=== PATIENT | male | born 1975 | race Caucasian/White ===

== ENCOUNTER 2017-11-22 10:43 | Emergency (ER) | payer OTHER ==
[~2017-11-22 10:43] MED LIST: NORCO 325 MG-51 TAB PO
[2017-11-22 12:32] LABS: ABSOLUTE BASOPHIL COUNT 0 /CUMM (0.0-0.2); ABSOLUTE EOSINOPHIL COUNT 0 /CUMM (0.0-0.7); ABSOLUTE GRANULOCYTE CT 7.3 /CUMM (1.4-6.5); ABSOLUTE LYMPH COUNT 0.9 /CUMM (1.2-3.4); BASOPHIL % 0.2 % (0.0-2.0); EOSINOPHIL % 0.3 % (0-5); GRANULOCYTE % 78.6 % (42.2-75.2); MEAN CORPUSCULAR HGB 32.5 PG (27.0-31.0); MEAN CORPUSCULAR HGB CONC 34.3 G/DL (33.0-37.0); MEAN PLATELET VOLUME 6.4 FL (7.4-10.4); PLATELET COUNT 203 /CUMM (130-400); RBC DISTRIBUTION WIDTH 12.8 % (11.5-14.5); RED BLOOD CELL CT 4.64 /CUMM (4.70-6.10); WHITE BLOOD CELL COUNT 9.2 /CUMM (4.8-10.8)
[2017-11-22 16:27] VITALS: BP 124/72
--- NOTE | 2017-11-22 17:03 | CT SCAN REPORT ---
EXAMINATION: CT ABDOMEN AND PELVIS WITH CONTRAST CLINICAL INFORMATION: Diarrhea. Left flank pain. Left lower quadrant pain for one day. COMPARISON: None TECHNIQUE: Multidetector volumetric imaging was performed of the abdomen and pelvis following IV administration of 95 mL of Optiray 320 intravenous contrast. Sagittal and coronal reformatted images were obtained on the technologist's workstation. DLP: 341.85 mGy-cm FINDINGS: LUNG BASES: The visualized lung bases are unremarkable. LIVER, GALLBLADDER, AND BILIARY TREE: The liver is normal in size, shape, and attenuation. No focal hepatic lesion or biliary ductal dilatation is present. The gallbladder is unremarkable with no evidence of radiopaque gallstones, gallbladder wall thickening, or obvious pericholecystic inflammatory changes. PANCREAS: Unremarkable. SPLEEN: Unremarkable. ADRENAL GLANDS: Unremarkable. KIDNEYS AND URETERS: The kidneys are normal in size, shape, and attenuation. No hydronephrosis, hydroureter, or calculi seen. No perinephric stranding. BLADDER: Unremarkable. GASTROINTESTINAL TRACT: There are diverticula of the left colon. There is an inflamed diverticulum at the proximal descending colon consistent with a focal diverticulitis. There is no perforation. There is no abscess. There is no obstruction of the bowel. There is scattered stool in the colon. The appendix is normal. The small bowel loops are unremarkable. ABDOMINAL WALL: No significant hernia is appreciated. LYMPH NODES: Normal. VASCULAR: Unremarkable. PELVIC VISCERA: Unremarkable. OSSEOUS STRUCTURES: Unremarkable. IMPRESSION: There is a moderate focal diverticulitis of the proximal descending colon.
[2017-11-22] MEDS ORDERED: CIPRO500 M1 PO (17:33)
[2017-11-22] MEDS ORDERED: PERCOCET 5-3251 EACH PO (17:33)
[2017-11-22] MEDS ORDERED: FLAGYL500 MG PO (17:33)
--- NOTE | 2017-11-22 17:34 | ED GI/GU/ABDOMINAL COMPLAINT ---
See Addendum History of Present Illness General Chief Complaint: Abdominal Pain/Flank Pain Stated Complaint: LEFT SIDE ABD PAIN Source: patient Exam Limitations: no limitations Vital Signs & Intake/Output Vital Signs & Intake/Output Vital Signs Date Time Temp Pulse Resp B/P B/P Pulse O2 O2 Flow FiO2 Mean Ox Delivery Rate 11/22 1627 98.7 77 18 124/72 98 11/22 1407 98.3 86 18 137/87 97 Room Air 11/22 1053 99 16 129/93 99 Room Air ED Intake and Output 11/23 0000 11/22 1200 Intake Total 0 Output Total Balance 0 Intake, Oral 0 Allergies Coded Allergies: Penicillins (Mild, HIVES 11/22/17) Reconcile Medications Ciprofloxacin HCl (Cipro) 500 MG TABLET 1 TAB PO BID diverituclitis Metronidazole (Flagyl) 500 MG TABLET 1 TAB PO TID diverticulitis Oxycodone HCl/Acetaminophen (Percocet 5-325 MG Tablet) 5 MG-325 MG TABLET 1 TAB PO 4 TIMES/DAY PRN pain Triage Note: PT TO ED C/O LT SIDED ABD PAIN RADIATING AROUND TO HIS BACK. DENIES ANY URINARY S/S. REPORTS THAT HE HAS BEEN ALSO HAVING DIARRHEA X1 MONTH, CALLED HIS PCP AND TOLD TO COME TO THE ED INSTEAD. PAIN WORSE WITH DEEP BREATHING. FEELS NAUSEOUS AT TIMES. Triage Nurses Notes Reviewed? yes Onset: Abrupt Duration: day(s): (1-2), constant, continues in ED, getting worse Timing: single episode today Quality/Severity: cramping, sharpness Severity Numbers: 7 Location: left flank, left lower quadrant Radiation: back Activities at Onset: none Prior Abdominal Problems: none HPI: 42-year-old male with no medical history presents for evaluation of left-sided abdominal pain. Patient reports this pain started yesterday and has been persistent. The pain is located in the left lower quadrant left flank radiates to the back described as sharp and cramping. Patient reports prior to this she has had watery diarrhea for about the past month. He is not been evaluated for this diarrhea. Denies any melena or bright red blood per rectum. Denies any fevers. No sick contacts or recent travel no recent antibiotics. No fevers nausea or vomiting. Is not taking any medicine for his pain. No recent abdominal surgery several had this pain before Past History Travel History Traveled to [place] past 21 day No Medical History Any Pertinent Medical History? see below for history Musculoskeletal: LT SHOULDER DISLOCATION Surgical History Surgical History: non-contributory Psychosocial History What is your primary language Latvian Tobacco Use: Never used Family History Hx Contributory? No Review of Systems Review of Systems Constitutional: Reports: no symptoms. EENTM: Reports: no symptoms. Respiratory: Reports: no symptoms. Cardiovascular: Reports: no symptoms. GI: Reports: see HPI, abdominal pain, diarrhea. Genitourinary: Reports: no symptoms. Musculoskeletal: Reports: no symptoms. Skin: Reports: no symptoms. Neurological/Psychological: Reports: no symptoms. Hematologic/Endocrine: Reports: no symptoms. Immunologic/Allergic: Reports: no symptoms. All Other Systems: Reviewed and Negative Physical Exam Physical Exam General Appearance: well developed/nourished, no apparent distress, alert, awake Head: atraumatic, normal appearance Eyes: Bilateral: normal appearance, EOMI. Ears, Nose, Throat, Mouth: moist mucous membrane Neck: normal inspection, supple, full range of motion Respiratory: normal breath sounds, chest non-tender, no respiratory distress, lungs clear Cardiovascular: regular rate/rhythm, normal peripheral pulses Peripheral Pulses: 2+ radial (R), 2+ radial (L) Gastrointestinal: normal bowel sounds, soft, no organomegaly, tenderness (llq, left flank) Back: normal inspection, normal range of motion, no vertebral tenderness, no cvat Extremities: normal range of motion Neurologic/Psych: no motor/sensory deficits, awake, alert, oriented x 3, normal gait Skin: intact, normal color, warm/dry Core Measures ACS in differential dx? No Sepsis Present: No Sepsis Focused Exam Completed? No Progress Differential Diagnosis: diverticulitis, gastritis, ischemic bowel, inflamm bowel dis, pancreatitis, peptic ulcer, PUD/GERD, perforated viscous, SBO, ureterolithiasis, urinary retention, urethritis, UTI/pyelo Plan of Care: Orders Procedure Date/time Status Add-on Test (ER Only) 11/22 1506 Active DIRECT BILIRUBIN 11/22 1220 Complete LIPASE 11/22 1105 Complete COMPREHENSIVE METABOLIC PANEL 11/22 1105 Complete CBC WITHOUT DIFFERENTIAL 11/22 1105 Complete Laboratory Tests 11/22/17 1220: Anion Gap 12, Estimated GFR > 60, BUN/Creatinine Ratio 17.5, Glucose 139 H, Calcium 10.2, Total Bilirubin 2.9 H, Direct Bilirubin 0.6 H, AST 44, ALT 57, Alkaline Phosphatase 74, Total Protein 8.4 H, Albumin 4.7, Globulin 3.7, Albumin/Globulin Ratio 1.3, Lipase 64, CBC w Diff NO MAN DIFF REQ, RBC 4.64 L, MCV 95.0 H, MCH 32.5 H, MCHC 34.3, RDW 12.8, MPV 6.4 L, Gran % 78.6 H, Lymphocytes % 10.2 L, Monocytes % 10.7 H, Eosinophils % 0.3, Basophils % 0.2, Absolute Granulocytes 7.3 H, Absolute Lymphocytes 0.9 L, Absolute Monocytes 1.0 H, Absolute Eosinophils 0, Absolute Basophils 0 11/22/17 1105: Urine Color Cancelled, Urine Clarity Cancelled, Urine pH Cancelled, Ur Specific Alva Cancelled, Urine Protein Cancelled, Urine Ketones Cancelled, Urine Nitrite Cancelled, Urine Bilirubin Cancelled, Urine Urobilinogen Cancelled, Ur Leukocyte Esterase Cancelled, Ur Microscopic Cancelled, Urine Hemoglobin Cancelled, Urine Glucose Cancelled Patient is here for evaluation of left lower quadrant abdominal pain that started yesterday. This is associated with diarrhea that has been present for a month. No blood in the diarrhea no recent antibiotics. Patient appears well no fevers is tolerating fluids. Labs CT scan ordered patient was unable to give a stool softener here. Lab work overall is unremarkable. CT scan shows evidence of moderate diverticulitis. Patient was started on Cipro and Flagyl first dose was given here. Percocet for severe pain olny. Patient was advised to follow up with gastroenterology for further evaluation and treatment including stool studies and possible colonoscopy. Discussed return precautions in detail discussed dietary changes. Patient agrees with the plan Diagnostic Imaging: Viewed by Me: CT Scan. Discussed w/RAD: CT Scan. Radiology Impression: PATIENT: KATIE ESTEBAN PRESENT AGE: 42 PATIENT ACCOUNT NO: [id number] : 77 LOCATION: [facility] ORDERING PHYSICIAN: Myron HOUSTON SERVICE DATE: 11/22/17 EXAM TYPE: CAT - CT ABD & PELVIS W IV CONTRAST EXAMINATION: CT ABDOMEN AND PELVIS WITH CONTRAST CLINICAL INFORMATION: Diarrhea. Left flank pain. Left lower quadrant pain for one day. COMPARISON: None TECHNIQUE: Multidetector volumetric imaging was performed of the abdomen and pelvis following IV administration of 95 mL of Optiray 320 intravenous contrast. Sagittal and coronal reformatted images were obtained on the technologist's workstation. DLP: 341.85 mGy-cm FINDINGS: LUNG BASES: The visualized lung bases are unremarkable. LIVER, GALLBLADDER, AND BILIARY TREE: The liver is normal in size, shape, and attenuation. No focal hepatic lesion or biliary ductal dilatation is present. The gallbladder is unremarkable with no evidence of radiopaque gallstones, gallbladder wall thickening, or obvious pericholecystic inflammatory changes. PANCREAS: Unremarkable. SPLEEN: Unremarkable. ADRENAL GLANDS: Unremarkable. KIDNEYS AND URETERS: The kidneys are normal in size, shape, and attenuation. No hydronephrosis, hydroureter, or calculi seen. No perinephric stranding. BLADDER: Unremarkable. GASTROINTESTINAL TRACT: There are diverticula of the left colon. There is an inflamed diverticulum at the proximal descending colon consistent with a focal diverticulitis. There is no perforation. There is no abscess. There is no obstruction of the bowel. There is scattered stool in the colon. The appendix is normal. The small bowel loops are unremarkable. ABDOMINAL WALL: No significant hernia is appreciated. LYMPH NODES: Normal. VASCULAR: Unremarkable. PELVIC VISCERA: Unremarkable. OSSEOUS STRUCTURES: Unremarkable. IMPRESSION: There is a moderate focal diverticulitis of the proximal descending colon. DICTATED BY: Farzad Cavanaugh MD DATE/TIME DICTATED:11/22/171651 PIT INSPECTOR:KHRIS DATE/TIME TRANSCRIBED:11/22/171651 CONFIDENTIAL, DO NOT COPY WITHOUT APPROPRIATE AUTHORIZATION. <Electronically signed in Other Vendor System> SIGNED BY: Farzad Cavanaugh MD 11/22/17 170 Initial ED EKG: none Departure Departure Disposition: HOME OR SELF CARE Condition: Stable Clinical Impression Primary Impression: Acute diverticulitis Referrals: Jameson CARRANZA,Ruddy (PCP/Family) Stacy Chauhan MD Additional Instructions: Take both antibiotics as directed for the full course. Tylenol or ibuprofen and Percocet for pain. Make a follow-up with your primary care doctor and heavy equipment service manager as soon as possible monitor symptoms return with any concerns. Please go over all results of today's visit with your primary care doctor. Contact your primary care doctor to let them know you were here in the emergency room. There may be nonspecific findings which may not be related to your visit today here in the emergency room but may require further evaluation and chronic monitoring by your primary care doctor. If you had a laceration today the chance of foreign body always remains. You should follow-up with your primary care doctor for recheck in 3-5 days for a wound check. If you had an x-ray done there is a chance that a fracture could have been missed on initial read and you should follow-up with your primary care doctor for repeat x-rays if symptoms persist. If your blood pressure was elevated here in the emergency room please have rechecked by isela primary care doctor within the next 48. If you were prescribed a narcotic here in the emergency room or any type of controlled substances you're not allowed to drive while taking this medication or operate any type of heavy machinery. Narcotics can make you feel lightheaded dizziness nausea and can cause constipation. You may need to pick up and delivery driver a stool softener. Thank you for choosing [facility] emergency room. Please return to the emergency room immediately if you have any other concerns worsening of symptoms. Departure Forms: Customer Survey General Discharge Information Prescriptions: Current Visit Scripts Ciprofloxacin HCl (Cipro) 1 TAB PO BID #28 TAB Metronidazole (Flagyl) 1 TAB PO TID #42 TAB Oxycodone HCl/Acetaminophen (Percocet 5-325 MG Tablet) 1 TAB PO 4 TIMES/DAY PRN pain #10 TAB
== END 2017-11-22 18:00 ==
LOC: ERH 10:43
PROVIDERS: Physician Assistant Medical
DX: R10.32 Left lower quadrant pain (principal); K57.92 Diverticulitis of intestine, part unspecified, without perforation or abscess without bleeding
CPT/HCPCS: 74177; 96374; J1885